=== PATIENT | male | born 1950 | race Hispanic/Latino ===

== ENCOUNTER 2019-08-14 21:13 | Inpatient (IN) | payer MEDICARE ==
[~2019-08-14] VITALS: Ht 172.7 cm; Wt 114.8 kg
[2019-08-14 22:15] LABS: BASOPHILS % (AUTO) 0.3 % (0.0-5.0); EOSINOPHILS % (AUTO) 0.5 % (0.0-8.0); HEMATOCRIT 47.4 % (42-54); LYMPHOCYTES % (AUTO) 20.6 % (21.0-51.0); MEAN CORPUSCULAR HEMOGLOBIN 29.8 pg (27.0-33.0); MEAN CORPUSCULAR VOLUME 87.6 fL (79-99); MONOCYTES % (AUTO) 9.4 % (3.0-13.0); NEUTROPHILS % (AUTO) 69.2 % (40.0-77.0); PLATELET COUNT (AUTO) 194 K/uL (130-400); RED BLOOD CELL COUNT(AUTO) 5.41 MIL/uL (4.50-6.20); RED CELL DISTRIBUTION WIDTH 14.4 % (11.0-15.5); WHITE BLOOD COUNT (AUTO) 10.6 K/uL (4.8-10.8)
[2019-08-14 22:30] LABS: ALBUMIN 3.8 g/dL (3.5-5.0); BILIRUBIN,TOTAL 0.6 mg/dL (0.2-1.0); TOTAL PROTEIN, SERUM 7.7 g/dL (6.0-8.3)
[2019-08-14] MEDS ORDERED: METHYLPREDNISOLONE SOD SUCC 40MG/ML 1ML ONE (23:00)
[2019-08-14] MEDS ORDERED: BACLOFEN 10 MG TABLET PO ONE (23:00)
[2019-08-15 00:30] VITALS: BP 156/87
[2019-08-15] MEDS ORDERED: AEC81 PO (00:59)
[2019-08-15] MEDS ORDERED: METO-409 PO (00:59)
[2019-08-15] MEDS ORDERED: HYDROMORPHONE PCA 10 MG/50 ML 50 ML IV PRN (01:15)
[2019-08-15] MEDS ORDERED: GUAIFENESIN-DM 200/20 MG 10 ML PO PRN (02:00)
[2019-08-15] MEDS ORDERED: ONDANSETRON HCL 4 MG/2 ML VIAL IVP PRN (02:00)
[2019-08-15] MEDS ORDERED: DIPHENHYDRAMINE HCL 25 MG CAPSULE PO PRN (02:00)
[2019-08-15] MEDS ORDERED: ACETAMINOPHEN 325 MG TAB PO PRN (02:00)
[2019-08-15 04:00] VITALS: BP 123/69
[2019-08-15 06:05] LABS: BASOPHILS % (AUTO) 0.1 % (0.0-5.0); LYMPHOCYTES % (AUTO) 8.4 % (21.0-51.0); MEAN CORPUSCULAR HEMOGLOBIN 29.9 pg (27.0-33.0); MEAN CORPUSCULAR HGB CONC 33.8 g/dL (32.0-36.0); MEAN CORPUSCULAR VOLUME 88.2 fL (79-99); MONOCYTES % (AUTO) 2.1 % (3.0-13.0); NEUTROPHILS % (AUTO) 89.4 % (40.0-77.0); PLATELET COUNT (AUTO) 175 K/uL (130-400); RED BLOOD CELL COUNT(AUTO) 4.99 MIL/uL (4.50-6.20); RED CELL DISTRIBUTION WIDTH 14.5 % (11.0-15.5); WHITE BLOOD COUNT (AUTO) 9.8 K/uL (4.8-10.8)
[2019-08-15 06:20] LABS: ALBUMIN 3.3 g/dL (3.5-5.0); BILIRUBIN,TOTAL 0.6 mg/dL (0.2-1.0); POTASSIUM 4.4 mmol/L (3.5-5.1); TOTAL PROTEIN, SERUM 6.8 g/dL (6.0-8.3)
[2019-08-15 08:00] VITALS: BP 127/72
[2019-08-15] MEDS ORDERED: METHYLPREDNISOLONE SOD SUCC 125MG/2ML VIAL IVP SCH (08:00)
[2019-08-15] MEDS: METOPROLOL TARTRATE 50 MG TAB PO SCH ×2 (11:11→21:48)
[2019-08-15] MEDS: BACLOFEN 10 MG TABLET PO SCH ×3 (11:11→21:48)
[2019-08-15] MEDS: METHYLPREDNISOLONE SOD SUCC 125MG/2ML VIAL IVP SCH ×2 (11:11→16:17)
[2019-08-15] MEDS: ASPIRIN 81 MG EC TAB PO SCH (11:11)
[2019-08-15 11:50] VITALS: BP 131/80
--- NOTE | 2019-08-15 12:29 | NUR ---
DC PLAN PER PATIENT, STATES HE IS INDEPENDENT, LIVES WITH SPOUSE, NO PROVIDER, HAS A CPAP AT HOME, AND FEELS SAFE TO RETURN HOME. Addendum: 08/15/19 at 1233 by LINDA MAHARAJ RN CM Amended: Links added.
[2019-08-15 15:59] VITALS: BP 116/67
[2019-08-15 20:21] VITALS: BP 154/76
[2019-08-16 00:21] VITALS: BP 142/80
[2019-08-16] MEDS: METHYLPREDNISOLONE SOD SUCC 125MG/2ML VIAL IVP SCH ×3 (00:46→16:03)
[2019-08-16 04:21] VITALS: BP 130/82
[2019-08-16 08:00] VITALS: BP 134/83
[2019-08-16] MEDS: BACLOFEN 10 MG TABLET PO SCH ×3 (10:05→20:45)
[2019-08-16] MEDS: METOPROLOL TARTRATE 50 MG TAB PO SCH ×2 (10:06→20:45)
[2019-08-16] MEDS: ASPIRIN 81 MG EC TAB PO SCH (10:06)
[2019-08-16 12:00] VITALS: BP 135/82
[2019-08-16 16:00] VITALS: BP 132/68
[2019-08-16 19:00] VITALS: BP 131/57
--- NOTE | 2019-08-16 19:00 | NUR ---
Assumed care at 1900. Patient in no apparent distress. Please see physical assessment for further detail. Will continue to monitor.
[2019-08-17] VITALS: BP 127/73
[2019-08-17] MEDS: METHYLPREDNISOLONE SOD SUCC 125MG/2ML VIAL IVP SCH ×2 (00:29→09:45)
--- NOTE | 2019-08-17 01:39 | NUR ---
Patient up to restroom at 00:45 when he experienced SOB and "uncontrollable trembling". Patient glucose normal. Vital signs stable. INSURANCE ASSISTANT Alfredo made aware. CXR, BNP, D-dimer ordered. Patient SOB episode lasted approximately 5 minutes. Patient currently in no visible distress. Patient denying SOB. Patient on CPAP with O2 saturation at 94%, RR 18, HR 78. Will continue to monitor
[2019-08-17 04:00] VITALS: BP 144/76
[2019-08-17] MEDS ORDERED: SODIUM CHLORIDE 0.9% 1000ML 1,000 ML IV ONE (05:17)
[2019-08-17 05:48] LABS: HEMATOCRIT 44.4 % (42-54); MEAN CORPUSCULAR HEMOGLOBIN 29.8 pg (27.0-33.0); MEAN CORPUSCULAR HGB CONC 33.6 g/dL (32.0-36.0); MEAN CORPUSCULAR VOLUME 88.7 fL (79-99); NUCLEATED RED BLOOD CELLS 0.1 % (0.0-0.19); PLATELET COUNT (AUTO) 181 K/uL (130-400); RED BLOOD CELL COUNT(AUTO) 5.01 MIL/uL (4.50-6.20); RED CELL DISTRIBUTION WIDTH 14.5 % (11.0-15.5); WHITE BLOOD COUNT (AUTO) 19.5 K/uL (4.8-10.8)
[2019-08-17 05:54] LABS: INR 1.23 (0.85-1.15); PARTIAL THROMBOPLASTIN TIME 25.8 SEC (26.3-35.5); PROTHROMBIN TIME 12.8 SEC (9.6-11.6)
[2019-08-17 05:58] LABS: ALBUMIN 3.1 g/dL (3.5-5.0); BAND NEUTROPHILS % (MANUAL) 3 % (0-2); BILIRUBIN,TOTAL 0.6 mg/dL (0.2-1.0); LYMPHOCYTES % (MANUAL) 11 % (22-44); MAN.DIFF COMMENT-IMPRESSION MANUAL DIFFERENTIAL; MONOCYTES % (MANUAL) 5 % (2-9); PLATELET MORPHOLOGY COMMENT ADEQUATE; POTASSIUM 4.1 mmol/L (3.5-5.1); SEGMENTED NEUTROPHILS % 81 % (40-70); TOTAL PROTEIN, SERUM 6.7 g/dL (6.0-8.3)
[2019-08-17 06:11] LABS: B-TYPE NATRIURETIC PEPTIDE 78 pg/mL (0-100)
[2019-08-17] MEDS ORDERED: IOHEXOL 350 MG/ML 100ML INFUS..BTL IV ONE (07:08)
[2019-08-17 08:00] VITALS: BP 143/88
[2019-08-17] MEDS: ASPIRIN 81 MG EC TAB PO SCH (09:45)
[2019-08-17] MEDS: METOPROLOL TARTRATE 50 MG TAB PO SCH ×2 (09:45→21:12)
[2019-08-17] MEDS: BACLOFEN 10 MG TABLET PO SCH ×3 (09:45→21:12)
[2019-08-17 12:00] VITALS: BP 138/90
--- NOTE | 2019-08-17 12:25 | NUR ---
DC PLANNING UPDATE PT WITH DILAUDID PUMP FOR INTRACTABLE BACK PAIN SPOUSE AT BEDSIDE, STATES THAT PT IS PREVIOUSLY VERY INDPENDED, TRIMS TREES, ETC; FOR SURGERY IN AM, CURRENTLY UNABLE TO AMBULATE WITHOUT SEVER PAIN. ADVISED PT THAT AFTER SURGERY WILL RE- REVIEW DC NEEDS. IF ABLE TO AMBULATE WILL BE DC HOME, BUT IF HAS DIFFICULTY ,DOC COULD OPT TO REFER PT TO INPT REHAB OR SNF SHORT STAY DEPENDING ON MOBILITY NEEDS. CM TO FOLLOW Addendum: 08/17/19 at 1229 by KELVIN VELEZ RN CM Amended: Links added.
[2019-08-17 16:00] VITALS: BP 134/81
[2019-08-17 19:00] VITALS: BP 122/57
--- NOTE | 2019-08-17 21:12 | NUR ---
MEDS SHIFT ASSESSMENT DONE, PLEASE REFER TO CHART. DUE MEDS ADMINISTERED, TOLERATED WELL. INSTRUCTED TO BE NPO POST MIDNIGHT, VERBALIZES UNDERSTANDING. RE-ITERATED FALL PRECAUTIONS. INFORMED THAT HE WILL NEED TO BE BATHE BEFORE SX, PT AGREED TO SHOWER IN THE AM. PCP WILL MADE AWARE. KEPT RESTED AND COMFORTABLE IN BED. CALL LIGHT WITHIN REACH. WILL MONITOR PT.
[2019-08-18] VITALS (24 sets, daily range): BP systolic 104–151; BP diastolic 59–84
[2019-08-18] MEDS: METOPROLOL TARTRATE 50 MG TAB PO SCH ×2 (05:02→21:27)
--- NOTE | 2019-08-18 05:45 | NUR ---
PIV PT HAD HIS SHOWER, TOLERATED ACTIVITY WELL. JOANIE MILAN PLACED TO BLE. CONTINUED NS AT [facility] WITH WEB WEAVER DILAUDID PER DEMAND. INSERTED SECOND PIV FOR SX, G20 TO LEFT HAND, SL. PT TOLERATED INSERTION WELL. KEPT NPO. FOR MORE CARE AND MANAGEMENT. Addendum: 08/18/19 at 0557 by IRENE HURTADO RN RN Amended: Links added.
--- NOTE | 2019-08-18 08:00 | NUR ---
Patient awake, no SOB, Denying pain, and stated that the pain medication is helping.
[2019-08-18] MEDS: ASPIRIN 81 MG EC TAB PO SCH (09:00)
[2019-08-18] MEDS: BACLOFEN 10 MG TABLET PO SCH ×3 (09:00→21:27)
--- NOTE | 2019-08-18 12:00 | NUR ---
Patient awake, alert, oriented x3. Denying pain at the moment, remains on Dilaudid KAIWH[place]AHAERE. Able to ambulate to the restroom.
--- NOTE | 2019-08-18 12:55 | NUR ---
Patient was taken down to surgery makayla bed, went with patient Addendum: 08/18/19 at 1312 by KD MCBRIDE RN [id number]= Patient was taken down to surgery via bed, went with patient
[2019-08-18] MEDS: VANCOMYCIN HCL 1 GM VIAL ONE ×2 (13:10→15:35)
[2019-08-18] MEDS ORDERED: DEXAMETHASONE SOD PHOSPHATE 10MG/ML 1ML VIAL ONE (13:17)
[2019-08-18] MEDS ORDERED: PROPOFOL 10 MG/ML 20ML VIAL IV ONE (13:17)
[2019-08-18] MEDS ORDERED: MIDAZOLAM HCL 1 MG/ML 2ML VIAL ONE (13:17)
[2019-08-18] MEDS ORDERED: ONDANSETRON HCL 4 MG/2 ML VIAL ONE (13:17)
[2019-08-18] MEDS ORDERED: LIDOCAINE PF 2% 5ML ABBOJECT ONE (13:17)
[2019-08-18] MEDS ORDERED: ROCURONIUM 10MG/1ML SYR 10 MG/ML ML ONE (13:18)
[2019-08-18] MEDS ORDERED: FENTANYL CITRATE PF 50 MCG/1 ML 2ML VIAL ONE ×3 (13:18→14:01)
[2019-08-18] MEDS ORDERED: BUPIVACAINE/PF 0.25% 30ML VIAL IJ ONE (13:42)
[2019-08-18] MEDS ORDERED: BACITRACIN 50,000 UNIT VIAL ONE (13:42)
[2019-08-18] MEDS ORDERED: THROMBIN-JMI 5000 UNIT/VIAL TP ONE (13:42)
[2019-08-18] MEDS ORDERED: BUPIVACAINE/EPI/PF 0.25% 30ML VIAL IJ ONE (14:00)
[2019-08-18] MEDS ORDERED: TRIAMCINOLONE ACETONIDE 40 MG/ML 1ML VIAL ONE (14:00)
[2019-08-18] MEDS ORDERED: KETOROLAC TROMETHAMINE 60 MG/2 ML VIAL ONE (14:04)
[2019-08-18] MEDS ORDERED: GLYCOPYRROLATE 1 MG/5 ML SYRINGE ONE (15:33)
[2019-08-18] MEDS ORDERED: NEOSTIGMINE 5MG/5ML SYR IV ONE (15:33)
[2019-08-18] MEDS: CALDOLOR 800MG+NS 250ML 250 ML IV SCH ×2 (15:45)
[2019-08-18] MEDS ORDERED: MEPERIDINE-PF 25 MG/ML SYG ONE ×2 (16:06→16:15)
--- NOTE | 2019-08-18 16:45 | NUR ---
Returned from surgery in stable condition, still a little sleepy but already asking for water. at bedside. Dressing to lumbar area has 2 small bleeding spots, there is a small dry abrasion to right side of back of which reported is from an old heating pad burn.
[2019-08-18] MEDS: CEFAZOLIN SODIUM 1 GM VIAL IVP SCH (21:28)
[2019-08-19] MEDS: CEFAZOLIN SODIUM 1 GM VIAL IVP SCH ×2 (02:56→09:56)
[2019-08-19 03:45] VITALS: BP 145/80
[2019-08-19 08:00] VITALS: BP 148/83
[2019-08-19] MEDS: BACLOFEN 10 MG TABLET PO SCH (09:56)
[2019-08-19] MEDS: METOPROLOL TARTRATE 50 MG TAB PO SCH (09:56)
[2019-08-19] MEDS: ASPIRIN 81 MG EC TAB PO SCH (09:56)
[2019-08-19 11:00] VITALS: BP 133/77
--- NOTE | 2019-08-19 13:15 | NUR ---
CM note: [facility] pending acceptance CM met with pt discussed Dr Mclaughlin rec for home w/HH dressing changes, pt agreeable, KENDRA signed for [facility]. Faxed order, clinicals, confirmation received. Spoke to Jacqueline w/[facility] will review notes and verify coverage. Aware dcp for today. Pt pending acceptance. Primary nurse aware. CM to cont to follow up.
--- NOTE | 2019-08-19 17:41 | NUR ---
INCISION CLEANED ,14 NICK INTACT. NO SIGNS OF BLEEDING OR SWELLING , APPLIED BETADINE AND SECURED WITH GAUZE AND TAPE. REPORT GIVEN TO CAREN FROM [facility] .
== END 2019-08-19 16:30 | disposition home health service (06) | DRG 517 ==
LOC: EDH 21:13 → EDHIP 21:15 → OBSVTOIN 21:15 → 4DH 08-15 00:18
PROVIDERS: ADMIT Internal Medicine; ATTEND Internal Medicine
PROC: 01NB0ZZ Release Lumbar Nerve, Open Approach (ICD-10-PCS; principal; 2019-08-18 13:15)
PROC: BR191ZZ Fluoroscopy of Lumbar Spine using Low Osmolar Contrast (ICD-10-PCS; 2019-08-18 13:15)
DX: M48.062 Spinal stenosis, lumbar region with neurogenic claudication (principal); M53.3 Sacrococcygeal disorders, not elsewhere classified; M54.16 Radiculopathy, lumbar region; M21.371 Foot drop, right foot; G47.30 Sleep apnea, unspecified; I10 Essential (primary) hypertension; J44.9 Chronic obstructive pulmonary disease, unspecified; G47.33 Obstructive sleep apnea (adult) (pediatric); M25.551 Pain in right hip
CPT/HCPCS: 36415; 71045; 71275; 72020; 72110; 72148; 73721; 80053; 82948; 83880; 85025; 85378; 85610; 85730; 93005; 97039; G0378; J0690; J1030; J1100; J1170; J1741; J1885; J2001; J2175; J2250; J2405; J2704; J2710; J2920; J2930; J3010; J3301; J3370; J3490; J7030; Q9967

== ENCOUNTER 2020-08-19 07:34 | Day surgery (SDC) | payer MEDICARE ==
[2020-08-13 14:07] LABS: BASOPHILS % (AUTO) 0.4 % (0.0-5.0); EOSINOPHILS % (AUTO) 2.1 % (0.0-8.0); LYMPHOCYTES % (AUTO) 26.4 % (21.0-51.0); MEAN CORPUSCULAR HEMOGLOBIN 28.8 pg (27.0-33.0); MEAN CORPUSCULAR HGB CONC 32.3 g/dL (32.0-36.0); MONOCYTES % (AUTO) 11.2 % (3.0-13.0); NEUTROPHILS % (AUTO) 59.5 % (40.0-77.0); PLATELET COUNT (AUTO) 157 K/uL (130-400); RED BLOOD CELL COUNT(AUTO) 4.83 MIL/uL (4.50-6.20); RED CELL DISTRIBUTION WIDTH 13.9 % (11.0-15.5); WHITE BLOOD COUNT (AUTO) 5.7 K/uL (4.8-10.8)
[2020-08-13 14:19] LABS: CREATININE 1.2 mg/dL (0.5-1.5); POTASSIUM 4.3 mmol/L (3.5-5.1)
[2020-08-13 14:22] LABS: INR 1.01 (0.85-1.15); PARTIAL THROMBOPLASTIN TIME 25.8 SEC (26.3-35.5); PROTHROMBIN TIME 10.9 SEC (9.6-11.6)
[2020-08-13 14:24] LABS: BILIRUBIN,URINE NEGATIVE (NEGATIVE); COLOR,URINE YELLOW (YELLOW); GLUCOSE, URINE (UA) NEGATIVE (NEGATIVE); KETONES,URINE NEGATIVE (NEGATIVE); LEUKOCYTE ESTERASE ,URINE NEGATIVE (NEGATIVE); NITRATE,URINE NEGATIVE (NEGATIVE); OCCULT BLOOD,URINE LARGE (NEGATIVE); PROTEIN,URINE 30 mg/dL (NEGATIVE); UROBILINOGEN,URINE 0.2 mg/dL (0.2-1.0)
[2020-08-13 14:39] LABS: APPEARANCE,URINE SLIGHTLY CLOUDY (CLEAR)
[2020-08-13 15:06] LABS: WBC,URINE 0-1 /HPF (0-1)
[2020-08-13 15:07] LABS: BACTERIA,URINE Few /HPF (None Seen); SQUAMOUS EPITHELIAL CELL,UR 0-2 /HPF (0-2)
--- NOTE | 2020-08-16 12:26 | NUR ---
LABS FAXED AND REPORTED ABNORMAL UA TO DR. LADONNA RODRIGUEZ ASST. SHE WILL INFORM HIM.
[2020-08-18 09:33] VITALS: BP 166/78
[~2020-08-19] VITALS: Ht 172.7 cm; Wt 112.9 kg
[2020-08-19] VITALS (17 sets, daily range): BP systolic 106–128; BP diastolic 52–77
[~2020-08-19 07:34] MED LIST: ASPI-1197 PO; LEVO500T89 PO; METO-409 PO
[2020-08-19] MEDS: CEFTRIAXONE SODIUM 1 GM IVP SCH ×2 (09:00→11:15)
[2020-08-19] MEDS ORDERED: GENTAMICIN SULFATE IV SCH (09:00)
[2020-08-19] MEDS ORDERED: SODIUM CHLORIDE 0.9% IV SCH (09:00)
[2020-08-19] MEDS ORDERED: LACTATED RINGERS 1000ML 1,000 ML IV ONE (09:08)
[2020-08-19] MEDS ORDERED: MIDAZOLAM HCL 1 MG/ML 2ML VIAL ONE (09:37)
[2020-08-19] MEDS ORDERED: FENTANYL CITRATE PF 50 MCG/1 ML 2ML VIAL ONE ×2 (09:37→11:31)
[2020-08-19] MEDS ORDERED: PROPOFOL 10 MG/ML 20ML VIAL IV ONE ×2 (09:38→10:52)
[2020-08-19] MEDS ORDERED: NEOSTIGMINE 5MG/5ML SYR IV ONE (09:52)
[2020-08-19] MEDS ORDERED: DEXAMETHASONE SOD PHOSPHATE 10MG/ML 1ML VIAL ONE (09:52)
[2020-08-19] MEDS ORDERED: ONDANSETRON HCL 4 MG/2 ML VIAL ONE (09:53)
[2020-08-19] MEDS ORDERED: GLYCOPYRROLATE 1 MG/5 ML SYRINGE ONE (11:26)
[2020-08-19] MEDS ORDERED: EPHEDRINE SULFATE 50 MG/ML AMPULE ONE (12:13)
== END 2020-08-19 14:27 | disposition home or self-care (01) ==
LOC: DAH 07:34
PROVIDERS: ATTEND Urology
DX: N40.1 Benign prostatic hyperplasia with lower urinary tract symptoms (principal); N13.9 Obstructive and reflux uropathy, unspecified; R33.9 Retention of urine, unspecified; G47.33 Obstructive sleep apnea (adult) (pediatric); M19.90 Unspecified osteoarthritis, unspecified site; I10 Essential (primary) hypertension; I45.10 Unspecified right bundle-branch block; I21.9 Acute myocardial infarction, unspecified; E66.9 Obesity, unspecified; Z79.01 Long term (current) use of anticoagulants; Z79.899 Other long term (current) drug therapy; Z20.828 Contact with and (suspected) exposure to other viral communicable diseases
CPT/HCPCS: 36415; 52648; 71045; 80048; 81001; 85025; 85610; 85730; 87088; 93005; A4215; A4221; A4222; A4223 ×2; A4354; A4358; A4600; A4657; A4663; A6260; C9803; J0696; J1100; J1580; J2250; J2405; J2704 ×2; J2710; J3010 ×2; J3490 ×2; J7030; J7120; U0003

== ENCOUNTER 2022-03-09 09:05 | Observation (INO) | payer MEDICARE ==
[~2022-03-09] VITALS: Ht 172.7 cm; Wt 111.1 kg
[~2022-03-09 09:05] MED LIST changes: -LEVO500T89 PO; +LEVO500T90 PO
[2022-03-09] MEDS ORDERED: MORPHINE PCA 50MG/50ML NS IV SCH (09:30)
[2022-03-09] MEDS ORDERED: ALBUTEROL 0.083% 2.5 MG/3 ML INH IH PRN (09:30)
[2022-03-09] MEDS ORDERED: HYDROCODONE/ACETAMINOPHEN 10/325 MG TAB PO PRN (09:30)
[2022-03-09 10:11] LABS: POTASSIUM 3.5 mmol/L (3.5-5.1)
[2022-03-09 11:10] LABS: APPEARANCE,URINE Clear (CLEAR); BILIRUBIN,URINE Negative (NEGATIVE); COLOR,URINE Yellow (YELLOW); GLUCOSE, URINE (UA) Negative (NEGATIVE); KETONES,URINE Negative (NEGATIVE); LEUKOCYTE ESTERASE ,URINE Large (NEGATIVE); NITRATE,URINE Negative (NEGATIVE); OCCULT BLOOD,URINE Trace (NEGATIVE); PH,URINE 5.5 (5.0-8.0); PROTEIN,URINE Negative (NEGATIVE)
[2022-03-09 11:24] LABS: BACTERIA,URINE Few /HPF (None Seen); RBC,URINE 0-1 /HPF (0-1); SQUAMOUS EPITHELIAL CELL,UR Rare /HPF (0-2)
[2022-03-09 12:15] VITALS: BP 163/79
[2022-03-09 15:20] VITALS: BP 140/80
[2022-03-09] MEDS: FUROSEMIDE 80 MG TABLET PO SCH (16:50)
[2022-03-09] MEDS ORDERED: BACL10TA PO (18:53)
[2022-03-09] MEDS ORDERED: HYDR-4068 PO (18:53)
[2022-03-09 19:34] VITALS: BP 147/81
[2022-03-09] MEDS ORDERED: PHARMACY COMMUNICATION MISC SCH (20:00)
[2022-03-09] MEDS: DEXAMETHASONE SOD PHOSPHATE 4 MG/ML 1ML VIAL IV SCH (20:25)
[2022-03-09] MEDS ORDERED: METOPROLOL TARTRATE 50 MG TAB PO SCH (21:00)
[2022-03-10] VITALS (7 sets, daily range): BP systolic 129–153; BP diastolic 62–86
[2022-03-10] MEDS: DEXAMETHASONE SOD PHOSPHATE 4 MG/ML 1ML VIAL IV SCH ×3 (03:37→14:20)
[2022-03-10 04:37] LABS: HEMATOCRIT 45.1 % (42-54); MEAN CORPUSCULAR HEMOGLOBIN 29.1 pg (27.0-33.0); MEAN CORPUSCULAR HGB CONC 32.8 g/dL (32.0-36.0); MEAN CORPUSCULAR VOLUME 88.6 fL (79-99); RED BLOOD CELL COUNT(AUTO) 5.09 MIL/uL (4.50-6.20); WHITE BLOOD COUNT (AUTO) 9.4 K/uL (4.8-10.8)
[2022-03-10 04:54] LABS: ALBUMIN 3.6 g/dL (3.5-5.0); CREATININE 1.1 mg/dL (0.5-1.5); POTASSIUM 3.6 mmol/L (3.5-5.1); TOTAL PROTEIN, SERUM 7.5 g/dL (6.0-8.3)
[2022-03-10] MEDS ORDERED: FURO40TA5 PO (07:50)
[2022-03-10] MEDS: ENOXAPARIN SODIUM 40 MG/0.4 ML SYRINGE SQ SCH ×2 (09:00→09:28)
[2022-03-10] MEDS: METOPROLOL SUCCINATE 50 MG TAB.SR.24H PO SCH (09:27)
[2022-03-10] MEDS: BACLOFEN 10 MG TABLET PO SCH ×3 (09:27→20:04)
[2022-03-10] MEDS: FUROSEMIDE 80 MG TABLET PO SCH ×2 (09:27→16:54)
[2022-03-10] MEDS: DOCUSATE SODIUM 100 MG CAP PO SCH ×2 (09:27→20:06)
[2022-03-10] MEDS: LIDOCAINE 5% TOPICAL PATCH TP SCH (09:28)
[2022-03-10] MEDS: FUROSEMIDE 40 MG TABLET PO SCH (09:33)
[2022-03-11 03:48] VITALS: BP 155/75
[2022-03-11] MEDS: DEXAMETHASONE SOD PHOSPHATE 4 MG/ML 1ML VIAL IV SCH ×2 (04:33→12:01)
[2022-03-11 08:00] VITALS: BP 109/79
[2022-03-11] MEDS: METOPROLOL SUCCINATE 50 MG TAB.SR.24H PO SCH (09:14)
[2022-03-11] MEDS: BACLOFEN 10 MG TABLET PO SCH ×2 (09:14→12:01)
[2022-03-11] MEDS: DOCUSATE SODIUM 100 MG CAP PO SCH (09:14)
[2022-03-11] MEDS: LIDOCAINE 5% TOPICAL PATCH TP SCH (09:14)
[2022-03-11] MEDS: FUROSEMIDE 40 MG TABLET PO SCH (09:15)
[2022-03-11] MEDS: ENOXAPARIN SODIUM 40 MG/0.4 ML SYRINGE SQ SCH (09:21)
[2022-03-11 12:00] VITALS: BP 108/54
[2022-03-11] MEDS ORDERED: LEVO750T46 PO (12:29)
[2022-03-11] MEDS ORDERED: MEDROL (12:30)
== END 2022-03-11 14:15 | disposition home or self-care (01) ==
LOC: EDH 09:05 → EDHIP 09:06 → 4AH 12:07 → 4DH 23:10
PROVIDERS: ADMIT Internal Medicine; ATTEND Internal Medicine
DX: M47.816 Spondylosis without myelopathy or radiculopathy, lumbar region (principal); M48.00 Spinal stenosis, site unspecified; E78.5 Hyperlipidemia, unspecified; I10 Essential (primary) hypertension; R60.0 Localized edema; G89.4 Chronic pain syndrome; G47.33 Obstructive sleep apnea (adult) (pediatric); Z79.899 Other long term (current) drug therapy
CPT/HCPCS: 96374; 82550; 83874; 84484; 80048; 83880; 87077; 87088; 87186; 81001; 36415 ×2; 72148; 94664; 96376 ×2; 80053; 85027; 93306; 93356; 93970; 97161; 97116 ×2; 96372; G0378 ×50; G0379; J1100 ×5; J2270 ×2; J1650

== ENCOUNTER → 2022-06-28 | Outpatient (CLI) | payer MEDICARE ==
[~2022-06-28] MED LIST changes: -ASPI-1197 PO; +BACL10TA PO; +FURO40TA5 PO; +HYDR-4068 PO; -LEVO500T90 PO; +LEVO750T68 PO; +MEDROL
== END | disposition home or self-care (01) ==
LOC: RAH 11:25
PROVIDERS: ATTEND Physician Assistant
DX: M47.26 Other spondylosis with radiculopathy, lumbar region (principal); M46.1 Sacroiliitis, not elsewhere classified; M99.05 Segmental and somatic dysfunction of pelvic region; M54.51 Vertebrogenic low back pain
CPT/HCPCS: 72114

== ENCOUNTER 2022-08-03 05:41 | Day surgery (SDC) | payer MEDICARE ==
[2022-08-01 16:01] LABS: BASOPHILS % (AUTO) 0.5 % (0.0-5.0); EOSINOPHILS % (AUTO) 0.7 % (0.0-8.0); HEMATOCRIT 46.2 % (42-54); LYMPHOCYTES % (AUTO) 22.4 % (21.0-51.0); MEAN CORPUSCULAR HEMOGLOBIN 29.7 pg (27.0-33.0); MEAN CORPUSCULAR HGB CONC 32.3 g/dL (32.0-36.0); MEAN CORPUSCULAR VOLUME 92.2 fL (79-99); MONOCYTES % (AUTO) 10.1 % (3.0-13.0); NEUTROPHILS % (AUTO) 65.8 % (40.0-77.0); PLATELET COUNT (AUTO) 188 K/uL (130-400); RED BLOOD CELL COUNT(AUTO) 5.01 MIL/uL (4.50-6.20); WHITE BLOOD COUNT (AUTO) 8.3 K/uL (4.8-10.8)
[2022-08-01 16:07] LABS: CREATININE 1.3 mg/dL (0.5-1.5); POTASSIUM 3.7 mmol/L (3.5-5.1)
[2022-08-02 10:13] VITALS: BP 174/85
[2022-08-03] VITALS (10 sets, daily range): BP systolic 128–155; BP diastolic 67–81
[~2022-08-03] VITALS: Ht 170.2 cm; Wt 114.6 kg
[~2022-08-03 05:41] MED LIST changes: -BACL10TA PO; -FURO40TA5 PO; +GABA300C PO; -HYDR-4068 PO; -LEVO750T68 PO; -MEDROL; +NAPR220T57 PO
[2022-08-03] MEDS ORDERED: ISOVUE-M 200 20 ML VIAL IT ONE (07:00)
[2022-08-03 08:39] LABS: APPEARANCE,CSF CLEAR (CLEAR); COLOR,CSF COLORLESS (COLORLESS); CSF TUBE NUMBER 3; WHITE BLOOD CELL1,CSF 0 CMM (0-5)
[2022-08-03 08:42] LABS: RED BLOOD CELL1,CSF 1 CMM (0-0)
== END 2022-08-03 11:20 | disposition home or self-care (01) ==
LOC: DAH 05:41
PROVIDERS: ATTEND Neurological Surgery
DX: M54.16 Radiculopathy, lumbar region (principal); Z20.822 Contact with and (suspected) exposure to COVID-19; Z79.899 Other long term (current) drug therapy; Z98.890 Other specified postprocedural states
CPT/HCPCS: 87426; 80048; 85025; 36415; 93005; 62304; 72132; 89051; A6260; A4663; Q9966

== ENCOUNTER → 2022-11-21 | Outpatient (CLI) | payer MEDICARE ==
[~2022-11-21] MED LIST changes: +GADOTERATE MEGLUMINE 10 MMOL/20 ML VIAL IV ONE
== END | disposition home or self-care (01) ==
LOC: RAH 10:35
PROVIDERS: ATTEND Physical Medicine & Rehabilitation
DX: M54.30 Sciatica, unspecified side (principal)
CPT/HCPCS: 72197; A9575

== ENCOUNTER → 2023-12-12 | Outpatient (CLI) | payer MEDICARE ==
[~2023-12-12] MED LIST changes: -GADOTERATE MEGLUMINE 10 MMOL/20 ML VIAL IV ONE
== END | disposition home or self-care (01) ==
LOC: RAH 12:45
PROVIDERS: ATTEND Psychiatry & Neurology Neurology
DX: G31.9 Degenerative disease of nervous system, unspecified (principal); G20.A1 Parkinson's disease without dyskinesia, without mention of fluctuations
CPT/HCPCS: 70551

== ENCOUNTER 2025-04-09 09:34 | Emergency (ER) | payer MEDICARE ==
[~2025-04-09] VITALS: Ht 172.7 cm; Wt 113.4 kg
[~2025-04-09 09:34] MED LIST changes: +CYCL-309 PO; +IBUP-2077 PO; +PRED20TA3 PO
--- NOTE | 2025-04-09 10:05 | ERN ---
General Chief Complaint: Low Back Pain/Injury Stated Complaint: LOW BACK PAIN RADIATES TO BOTH LEGS Time Seen by MD: 09:34 Source: patient History of Present Illness Initial Comments Patient is a 74-year-old gentleman coming in complaining of lower back pain reasons in his legs. He states he was diagnosed with sciatica long time ago and has gotten multiple surgeries in his lower back. He was here couple of months ago and was treated with some medication he states helped in his here for medication prescription. Allergies: Coded Allergies: No Known Allergies (Unverified Allergy, Unknown, 08/15/19) Home Meds Active Scripts Prednisone (Prednisone) 20 Mg Tablet, 1 TAB PO AD for 6 Days, #14 TAB 0 Refills TAKE 1 TAB BY MOUTH THREE TIMES PER DAY X3 DAYS, THEN TAKE 1 TAB BY MOUTH TWICE A DAY X2 DAYS, THEN TAKE 1 TAB BY MOUTH ONCE A DAY X1 DAY. TAKE WITH FOOD Prov:CHICHI CLANCY NP 01/14/25 Cyclobenzaprine HCl (Cyclobenzaprine HCl) 10 Mg Tablet, 1 TAB PO TID for muscle spasms for 10 Days, #30 TAB 0 Refills Prov:CHICHI CLANCY NP 01/14/25 Ibuprofen (Ibuprofen 800 mg Tab) 800 Mg Tab, 800 MG PO Q8H PRN for fever or pain, #30 TAB 0 Refills Prov:CHICHI CLANCY NP 01/14/25 Reported Medications Naproxen Sodium (Aleve) 220 Mg Tablet, 440 MG PO AD PRN for PAIN, TAB 08/02/22 Gabapentin (Neurontin) 300 Mg Capsule, 600 MG PO TID, CAP 08/02/22 Metoprolol Succinate (Metoprolol Succinate) 100 Mg Tab.er.24h, 100 MG PO DAILY, TAB 08/15/19 Past Medical History Past Medical History: Hypertension, Other Medical History Other: CHRONIC BACK PAIN, [place] Past Surgical History: Cholecystectomy, Other Surgical History Other: RT ANKLE SX, CATARACT, BACK SX, PROSTATE SX ROS Dictation CONSTITUTIONAL: No chills, no fever, no weakness, no diaphoresis, no malaise. HEAD/FACE: No signs of trauma. EENT: No eye pain, no blurred vision, no tearing, no double vision, no ear pain, no ear discharge, no nose pain, no nasal congestion, no throat pain, no throat swelling, no mouth pain. RESPIRATORY: No cough, no orthopnea, no SOB, no stridor, no wheezing. CARDIOVASCULAR: No chest pain, no edema, no palpitations, no syncope. GASTROINTESTINAL/ABDOMINAL: No abdominal pain, no constipation, no diarrhea, no nausea, no vomiting. GENITOURINARY: No abnormal discharge, no dysuria, no frequent urination, no hematuria. No complaints of pain in the genitals. MUSCULOSKELETAL: No back pain, no gout, no joint pain, no joint swelling, no muscle pain, no muscle stiffness, no neck pain. INTEGUMENTARY: No change in color, no change in hair/nails, no dryness, no lesion, no lumps, no rash. NEUROLOGICAL/PSYCH: No anxiety, not depressed, no emotional problem, no headache, no numbness, no pre-existing deficit, no history of seizures, no tremors, no weakness. HEMATOLOGIC/LYMPHATIC: Not anemic, no history of blood clots, no apparent bleeding, no bruising, glands not swollen. All Systems Negative, Except as Noted. Physical Exam Physical Exam Dictation VITAL SIGNS: Reviewed. GENERAL APPEARANCE: Alert, oriented x3, no acute distress, obese. HEAD AND FACE: Non-traumatic. EYES: PERRL, pink conjunctivas, eyelid no trauma, anterior chamber clear. EARS: Pinnas intact and no signs of trauma or erythema. Ear canals clear and no discharge. TMs no erythema. NOSE: No discharge, no bleeding. OROPHARYNX: Mouth normal, teeth no caries, tongue pink. Pharynx clear, no erythema. Tonsils no exudates, no abscesses noted. Mucous membrane moist. NECK: Supple, non-tender, no thyromegaly, no masses, no JVD, no bruits. BREAST: Deferred. CHEST: No tenderness, no crepitus, no paradoxical movement, no retractions. LUNGS: Clear, well-ventilated, symmetric, no rales, no wheezing, no rhonchi, no stridor, good breath sounds bilaterally. HEART: Regular rate, regular rhythm, no murmur, no gallops. VASCULAR: No peripheral edema. ABDOMEN: Soft, positive bowel sounds, nondistended, no guarding, nontender, no rebound, no masses no hepatomegaly, no splenomegaly, no Aguiar's sign, no hernias. RECTAL: Deferred. GENITAL: Deferred. NEUROLOGICAL: Normal speech, gross motor function intact, gross sensory function intact. MUSCULOSKELETAL: Neck nontender, full range of motion, back nontender, full range of motion. EXTREMITIES: Nontender, full range of motion. SKIN: Color pink, dry, no turgor, no rash, no lacerations, no abrasions, no contusions. LYMPHATICS: Deferred. Results Laboratory and Microbiology Labs Reviewed?: Yes MDM MDM: Differential diagnosis: Back pain, sciatica, chronic back pain, Rationale: Tests considered and ordered secondary to shared decision making include: Previous outside records reviewed: Old ER visits. Risk of complication and/or morbidity or mortality of patient management: None Medications-Per medication reconciliation Need for hospitalization: Patient does not meet criteria for hospitalization. Patient is a 74-year-old gentleman coming in complaining of back pain. Per his neurologist patient will continue to have episodic sciatic spasms. Patient received antispasmodics anti-inflammatory states he feels much better will be discharged in stable condition. ED Course Orders Procedure Category Date Status Time Orphenadrine Citrate PHA 04/09/25 Complete (Norflex) 10:30 Triamcinolone Acet PHA 04/09/25 Complete 40mg/Ml 1ml (Kenalog 10:30 Ketorolac PHA 04/09/25 Complete Tromethamine 30mg/Ml 10:30 Triamcinolone Acet PHA 04/09/25 Complete 40mg/Ml 1ml (Kenalog 11:30 Current Medications Medications (Trade) Dose Ordered Sig/Maryann Route PRN Reason Start Time Stop Time Status Last Admin Dose Admin Ketorolac Tromethamine (toRADol) 30 mg ONCE ONCE IM 04/09/25 10:30 04/09/25 10:31 DC 04/09/25 11:23 Orphenadrine Citrate (Norflex) 60 mg ONCE ONCE IM 04/09/25 10:30 04/09/25 10:31 DC 04/09/25 11:23 Triamcinolone Acetonide (Kenalog 40) 40 mg ONCE ONCE IM 04/09/25 10:30 04/09/25 10:31 DC Triamcinolone Acetonide (Kenalog 40) 40 mg ONCE ONCE IM 04/09/25 11:30 04/09/25 11:31 DC Vital Signs Date Time Temp Pulse Resp B/P (MAP) Pulse Ox O2 Delivery O2 Flow Rate FiO2 04/09/25 09:34 97.9 63 20 192/75 99 Room Air 0 DX & DISP Disposition: Discharge Departure Impression: Primary Impression: Acute exacerbation of chronic low back pain Condition: Stable Scripts Methocarbamol (Robaxin) 750 Mg Tab 1 TAB PO BID for 7 Days, #14 TAB 0 Refills Prov: COLUMBA MILLER MD 04/09/25 Methylprednisolone (Medrol) 8 Mg Tablet 1 TAB PO BID for 5 Days, #10 TAB 0 Refills Prov: COLUMBA MILLER MD 04/09/25 Additional Instructions: FOLLOW-UP WITH PRIMARY CARE PROVIDER IN 1 TO 2 DAYS. TAKE MEDICATIONS DIRECTED HERE IN THE EMERGENCY ROOM. OKAY TO CONTINUE HOME MEDICATIONS UNLESS OTHERWISE DISCUSSED DURING YOUR VISIT IN THE EMERGENCY ROOM TODAY. RETURN TO YOUR NEAREST EMERGENCY ROOM IF SYMPTOMS WORSEN OR IF THERE IS NO IMPROVEMENT. CALL 911 IF YOU NEED IMMEDIATE ASSISTANCE. TAKE TYLENOL [id number] NEEDED AND IF NO CONTRAINDICATIONS ARE PRESENT. INCREASE ORAL HYDRATION. A WOUND CULTURE OR URINE CULTURE WAS ORDERED HERE IN THE EMERGENCY ROOM DEPARTMENT PLEASE FOLLOW-UP WITH PRIMARY CARE PROVIDER AND ADVISE THEM TO GET REPORTS FROM OUR FACILITY. IF YOU HAD ANY ENRIQUE WRAP/SPLINTS THAT WERE APPLIED HERE, PLEASE DO NOT REMOVE THEM UNTIL YOU SEE YOUR PRIMARY CARE OR SPECIALTY. Referrals: Referrals: JOSE MANUEL BAIG MD (PCP) Time of Disposition: 12:01 COLUMBA MILLER MD Apr 09, 2025 10:05
[2025-04-09 10:50] VITALS: TEMP 97.8
--- NOTE | 2025-04-09 10:50 | NUR ---
SITUATED IN ROOM
[2025-04-09] MEDS: ORPHENADRINE 60MG/2ML IM ONE (11:23)
[2025-04-09] MEDS: TRIAMCINOLONE ACETONIDE 40 MG/ML 1ML VIAL IM ONE ×2 (11:24→12:04)
--- NOTE | 2025-04-09 11:28 | NUR ---
PHARMACY DELIVERED JM
[2025-04-09] MEDS ORDERED: METH-662 PO (12:06)
[2025-04-09] MEDS ORDERED: METH8TAB PO (12:06)
[2025-04-09 12:30] VITALS: BP 159/59; PULSE 59; RESP 18; O2SAT 99
--- NOTE | 2025-04-09 12:55 | NUR ---
PT DISCHARGED. PAPERWORK AND PRESCRIPTION HANDED TO HIM. HE WALKED TO THE ENTRANCE WITH HIS WALKER,STATING HIS PAIN BETTER. OBSERVED HIM TRANSFERRING INTO HIS VEHICLE STEADILY.
== END 2025-04-09 14:50 | disposition home or self-care (01) ==
LOC: EDH 09:34
DX: G89.29 Other chronic pain (principal); M54.50 Low back pain, unspecified; I10 Essential (primary) hypertension; Z79.899 Other long term (current) drug therapy; Z90.49 Acquired absence of other specified parts of digestive tract
CPT/HCPCS: 99284; 96372 ×3; J1885; J3301; J2360